=== PATIENT | female | born 1975 | race Caucasian/White ===

== ENCOUNTER 2016-03-19 09:31 | Emergency (ER) | payer BC, OTHER ==
[~2016-03-19] VITALS: Ht 162.6 cm; Wt 72.6 kg
[2016-03-19 09:52] VITALS: BP 161/106; PULSE 87; RESP 16; TEMP 97.6; O2SAT 99
--- NOTE | 2016-03-19 09:59 | NUR ---
Patient to ER bed 7 to gown for evaluation. Side rails up. Report given to Gricelda LAGOS.
--- NOTE | 2016-03-19 10:11 | NUR ---
patient presents to the emergency department with complaints of dizziness, L shoulder pressure radiating to l arm, shakiness, and "feeling like im on clouds" since yesterday. Patient states she took 1/2 tab of her xanax which helped a little bit but is still feeling symptoms. will continue to monitor
--- NOTE | 2016-03-19 10:45 | NUR ---
ER at bedside examining patient.
[2016-03-19 11:00] VITALS: BP 143/84; PULSE 77; RESP 16; TEMP 98.1; O2SAT 99
--- NOTE | 2016-03-19 11:00 | NUR ---
Patient given written and verbal discharge instructions and verbalizes understanding. ER MD Dr. juares discussed with patient the results and treatment provided. Given copies of tests performed in ER. Patient in stable condition. ID arm band removed. No Rx given. Patient educated on pain management and to follow up with PMD. Pain Scale 0/10 Opportunity for questions provided and answered.
== END 2016-03-19 11:00 | disposition home or self-care (01) ==
LOC: SED 09:31
DX: F41.9 Anxiety disorder, unspecified (principal); I10 Essential (primary) hypertension
CPT/HCPCS: 99281

== ENCOUNTER 2016-04-19 16:32 | Emergency (ER) | payer BC ==
[~2016-04-19] VITALS: Ht 162.6 cm; Wt 68.9 kg
--- NOTE | 2016-04-19 16:36 | NUR ---
Patient called for triage, no answer
[2016-04-19 16:50] VITALS: BP 147/96; PULSE 89; RESP 18; TEMP 98.3; O2SAT 98
--- NOTE | 2016-04-19 16:58 | NUR ---
Patient to ER bed H1 to gown for evaluation. Side rails up.
--- NOTE | 2016-04-19 17:02 | NUR ---
Patient presents to the emergency department with numbness and tingling to L arm that started 11am where she called Dr barger and was told to take an extra lisinopril 2.5 hours ago and to continue to keep checking BP but if she didnt feel well, to come into the ED. Patient states she started having numbness and tingling to hayes knees and is feeling "wobbly and my left arm feels heavier" states posterior lower JOHNSON 8/10 since yesterday. 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
--- NOTE | 2016-04-19 17:15 | NUR ---
MINA CORBIN at bedside examining patient.
--- NOTE | 2016-04-19 17:35 | NUR ---
lab at bedside for blood draw
[2016-04-19 17:46] LABS: BASOPHILS % (AUTO) 0.5 % (0.0-2.0); EOSINOPHILS % (AUTO) 0.6 % (0.0-4.0); HEMATOCRIT 34.4 % (36-48); HEMOGLOBIN 11.8 g/dL (12.0-16.0); LYMPHOCYTES # (AUTO) 1.1 K/uL (1.0-5.5); LYMPHOCYTES % (AUTO) 29.5 % (20.5-51.5); MEAN CORPUSCULAR HEMOGLOBIN 30 pg (27-31); MEAN CORPUSCULAR HGB CONC 34 % (32-36); MEAN CORPUSCULAR VOLUME 86 fL (79.0-98.0); MONOCYTES # (AUTO) 0.2 K/uL (0.0-1.0); MONOCYTES % (AUTO) 6.7 % (1.7-9.3); NEUTROPHILS # (AUTO) 2.3 K/uL (1.8-7.7); NEUTROPHILS % (AUTO) 62.7 % (40.0-70.0); PLATELET COUNT (AUTO) 184 K/uL (130-430); RED CELL DISTRIBUTION WIDTH 12.5 % (9.0-15.0); WHITE BLOOD COUNT (AUTO) 3.6 K/uL (4.8-10.8)
[2016-04-19 17:55] LABS: CALCIUM 8.8 mg/dL (8.4-11.0); CREATININE 0.68 mg/dL (0.55-1.30); POTASSIUM 3.6 mmol/L (3.5-5.1)
[2016-04-19 17:57] LABS: ALBUMIN 3.6 g/dL (3.4-4.8); TOTAL BILIRUBIN 0.2 mg/dL (0.0-1.0)
--- NOTE | 2016-04-19 18:02 | NUR ---
pt to radiology via adrian
[2016-04-19] MEDS ORDERED: KETOROLAC TROMETHAMINE 60 MG/2 ML VIAL IM ONE (19:00)
[2016-04-19 19:25] VITALS: BP 140/85; PULSE 85; RESP 18; TEMP 98.3; O2SAT 98
--- NOTE | 2016-04-19 19:25 | NUR ---
Patient given written and verbal discharge instructions and verbalizes understanding. ER MD discussed with patient the results and treatment provided. Patient in stable condition. ID arm band removed. Patient educated on pain management and to follow up with PMD. Pain Scale 0/10. Opportunity for questions provided and answered.
== END 2016-04-19 19:25 | disposition home or self-care (01) ==
LOC: SED 16:32
DX: I10 Essential (primary) hypertension (principal); D64.9 Anemia, unspecified; F41.9 Anxiety disorder, unspecified
CPT/HCPCS: 36415; 70450; 71010; 80053; 81025; 84484; 85025; 93005; 96372; 99285; J1885

== ENCOUNTER 2016-09-15 23:34 | Emergency (ER) | payer BC ==
[~2016-09-15] VITALS: Ht 162.6 cm; Wt 69.9 kg
[2016-09-15 23:55] VITALS: BP_SYST 157
[2016-09-16 01:14] LABS: BILIRUBIN,URINE NEGATIVE (NEGATIVE); CLARITY/URINE SL HAZY (CLEAR); COLOR,URINE YELLOW (YELLOW); GLUCOSE,URINE NEGATIVE (NEGATIVE); KETONES,URINE NEGATIVE (NEGATIVE); LEUKOCYTE ESTERASE ,URINE 1+ (NEGATIVE); NITRITE, URINE NEGATIVE (NEGATIVE); PROTEIN URINE NEGATIVE (NEGATIVE); UROBILINOGEN,URINE 0.2 (0.2-1.0)
[2016-09-16 01:19] LABS: CALCIUM 9.2 mg/dL (8.4-11.0); CREATININE 0.75 mg/dL (0.55-1.30); POTASSIUM 3.5 mmol/L (3.5-5.1)
[2016-09-16 01:23] LABS: BLOOD, URINE TRACE (NEGATIVE)
[2016-09-16 01:25] LABS: ALBUMIN 3.8 g/dL (3.4-4.8); TOTAL BILIRUBIN 0.3 mg/dL (0.0-1.0); TOTAL PROTEIN, SERUM 7.2 g/dL (6.4-8.3)
[2016-09-16 01:32] LABS: EOSINOPHILS % (AUTO) 2.4 % (0.0-4.0); HEMOGLOBIN 12.6 g/dL (12.0-16.0); LYMPHOCYTES % (AUTO) 27.1 % (20.5-51.5); MEAN CORPUSCULAR HEMOGLOBIN 29 pg (27-31); MEAN CORPUSCULAR HGB CONC 32 % (32-36); MEAN CORPUSCULAR VOLUME 91 fL (79.0-98.0); MONOCYTES % (AUTO) 7.6 % (1.7-9.3); NEUTROPHILS # (AUTO) 4.3 K/uL (1.8-7.7); NEUTROPHILS % (AUTO) 61.9 % (40.0-70.0); PLATELET COUNT (AUTO) 172 K/uL (130-430); RED BLOOD CELL COUNT(AUTO) 4.41 MIL/uL (4.2-6.2); RED CELL DISTRIBUTION WIDTH 12.6 % (9.0-15.0)
[2016-09-16 01:33] LABS: BASOPHILS # (AUTO) 0.1 K/uL (0.0-0.2); EOSINOPHILS # (AUTO) 0.2 K/uL (0.0-0.4); LYMPHOCYTES # (AUTO) 1.9 K/uL (1.0-5.5); MONOCYTES # (AUTO) 0.5 K/uL (0.0-1.0)
[2016-09-16 01:39] LABS: BACTERIA,URINE MODERATE /HPF (None Seen); RBC,URINE 0-3 /HPF (0-3)
[2016-09-16 02:00] VITALS: BP_SYST 157
== END 2016-09-16 02:00 | disposition home or self-care (01) ==
LOC: SED 23:34
DX: R51 Headache (principal); N39.0 Urinary tract infection, site not specified; I10 Essential (primary) hypertension; F41.9 Anxiety disorder, unspecified
CPT/HCPCS: 36415; 70450-TC; 80053; 81000-TC; 85025; 87086; 99285

== ENCOUNTER 2017-07-04 05:35 | Day surgery (SDC) | payer BC ==
[~2017-07-04] VITALS: Ht 162.6 cm; Wt 75.7 kg
[2017-07-04] MEDS ORDERED: ONDANSETRON HCL 4 MG/2 ML VIAL IVP PRN ×2 (08:00→08:15)
[2017-07-04] MEDS ORDERED: fentaNYL CITRATE/PF 100 MCG/2 ML AMP IVP PRN ×2 (08:00)
[2017-07-04] MEDS ORDERED: MIDAZOLAM HCL 5 MG/ML VIAL (VERSED) IV ONE (08:15)
[2017-07-04] MEDS ORDERED: SILVER NITRATE APPLICATOR 1 STICK STICK..EA. TP ONE (08:15)
[2017-07-04] MEDS ORDERED: KETOROLAC TROMETHAMINE 30 MG VIAL IVP ONE (08:15)
[2017-07-04] MEDS ORDERED: PROMETHAZINE HCL 25 MG/ML AMP IM PRN (08:15)
[2017-07-04] MEDS ORDERED: fentaNYL CITRATE/PF 100 MCG/2 ML AMP IVP ONE (08:15)
[2017-07-04] MEDS ORDERED: NS IRRIG SOLN 5000 ML IR ONE (08:15)
[2017-07-04] MEDS ORDERED: LR 1,000 ML IV.SOLN IV ONE (08:15)
[2017-07-04] MEDS ORDERED: OXYCODONE/ACETAMINOPHEN 5-325 TABLET PO PRN (08:15)
[2017-07-04] MEDS ORDERED: ONDANSETRON HCL 4 MG/2 ML VIAL IVP ONE (08:15)
[2017-07-04] MEDS ORDERED: PROPOFOL 200MG/ 20ML VIAL (DIPRIVAN) IV ONE (08:15)
[2017-07-04] MEDS ORDERED: SEVOFLURANE 15 MIN GAS INH ONE (08:15)
[2017-07-04] MEDS: fentaNYL CITRATE/PF 100 MCG/2 ML AMP ONE ×2 (08:25→08:32)
[2017-07-04 09:13] VITALS: BP_SYST 106
== END 2017-07-04 11:00 | disposition home or self-care (01) ==
LOC: SMU 05:35 → SDS 05:35
PROVIDERS: ATTEND Obstetrics & Gynecology
DX: N85.01 Benign endometrial hyperplasia (principal); Z98.890 Other specified postprocedural states
CPT/HCPCS: 36415; 58558; 86886; 86900; 86901; 88305; J1885; J2250; J2405; J2704; J3010; J7120